=== PATIENT | female | born 1980 | race American Indian/Alaskan Native ===

== ENCOUNTER 2019-09-08 14:44 | Inpatient (IN) | payer OTHER ==
--- NOTE | 2019-09-08 15:06 | Event Note ---
ED Screening Note Date of service: 09/08/19 Time: 15:02 ED Screening Note: 39 y/o female comes in reporting that she has fluids that leaking. She is 18 weeks preg. A1, LMP 04/28/19. Followed by Dr. Baez communications consultant. This initial assessment/diagnostic orders/clinical plan/treatment(s) is/are subject to change based on patients health status, clinical progression and re- assessment by fellow clinical providers in the ED. Further treatment and workup at subsequent clinical providers discretion. Patient/guardian urged not to elope from the ED as their condition may be serious if not clinically assessed and managed. Initial orders include:
[2019-09-08 16:01] LABS: Basophils # (Auto) 0.1 K/mm3 (0.0-0.1); Basophils % (Auto) 0.8 % (0.0-1.8); Eosinophils % (Auto) 0.6 % (0.0-4.3); Hematocrit 36.4 % (30.3-42.9); Hemoglobin 12.1 gm/dl (10.1-14.3); Lymphocytes % (Auto) 26.4 % (13.4-35.0); Mean Corpuscular HGB Conc 33 % (30-34); Mean Corpuscular Volume 83 fl (79-97); Monocytes # (Auto) 0.6 K/mm3 (0.0-0.8); Monocytes % (Auto) 8.5 % (0.0-7.3); Platelet Count 270 K/mm3 (140-440); Red Blood Count 4.41 M/mm3 (3.65-5.03); Red Cell Distribution Width 13.5 % (13.2-15.2)
--- NOTE | 2019-09-08 16:02 | Ultrasound Report ---
OB ULTRASOUND >= 14 WEEKS FETUS INDICATION: Paxton pain during , leaking of fluid COMPARISON: None FINDINGS: A single gestation intrauterine is present with breech presentation. The placenta is crew lead ior, grade 0 and free of the cervical os. heart tones measure 162 bpm. The cervix measures 5.1 cm. Amniotic fluid volume is severely decreased with a fluid index of 0. anatomical survey was not performed. Biparietal diameter is 4.1 cm which equals 18 weeks 3 days. Head circumference is 16.3 cm which equals 19 weeks 0 days. Abdominal circumference is 13.7 cm which equals 19 weeks 1 day. Femur length is 3.2 cm which equals 19 weeks 6 days. Overall estimated sonographic age is 19 weeks 1 day. EDC: 02/01/2020. HC/AC ratio: 1.2 Cephalic index: 76.4 Estimated weight 291 g. IMPRESSION: Viable single intrauterine as described. Oligohydramnios. Signer Name: Clayton Segundo Jr, MD Signed: 09/08/2019 3:57 PM Workstation Name: [id number]
[2019-09-08 16:08] LABS: INR 0.96 (0.87-1.13)
[2019-09-08 16:09] LABS: Partial Thromboplastin Time 29.2 Sec. (24.2-36.6)
[2019-09-08 16:21] LABS: BUN/Creatinine Ratio 9; Blood Urea Nitrogen 7 mg/dL (7-17); Calcium 9.9 mg/dL (8.4-10.2); Hemolysis Index 11
--- NOTE | 2019-09-08 16:28 | Emergency Department Report ---
ED HPI - General Chief complaint: Urogenital-Female Stated complaint: WATER BROKE Time Seen by Provider: 09/08/19 15:02 Source: patient Mode of arrival: Ambulatory Limitations: No Limitations - History of Present Illness Initial comments: This is a 39-year-old -[place]aced[place] female who presents to the emergency room with vaginal leakage. Patient states she is 18 weeks [address] Roman [employer]DLE SCHOOL GUIDANCE COUNSELOR. Her last menstrual period was May 02, 2019, G4, miscarriage. Patient reports he yellowish clear fluid started leaking around 1410 p.m. today. She denies abdominal pain, back pain, vaginal bleeding, or vaginal discharge. MD Complaint: other (vaginal leakage) -: This afternoon Time: 14:00 Consistency: constant Improves with: none Worsens with: none Associated symptoms: denies other symptoms Vaginal bleeding: none :: Yes Number of weeks : 18 OB History - Current : no complications OB History - Previous Pregnancies: miscarriage Last menstrual period: 05/02/19 Pre-johanna care: followed by OB - Related Data : 4 Para: 2 Ab: 1 (Miscarriage) Allergies Allergy/AdvReac Type Severity Reaction Status Date / Time No Known Allergies Allergy Unverified 09/08/19 14:45 ED Review of Systems ROS: Stated complaint: WATER BROKE Other details as noted in HPI Constitutional: denies: chills, fever Respiratory: denies: cough, shortness of breath, wheezing Cardiovascular: denies: chest pain, palpitations Gastrointestinal: denies: abdominal pain, nausea, diarrhea Genitourinary: other (Leaking yellowish fluid). denies: urgency, dysuria, discharge Musculoskeletal: denies: back pain, joint swelling, arthralgia Skin: denies: rash, lesions Neurological: denies: headache, weakness, paresthesias Psychiatric: denies: anxiety, depression ED Past Medical Hx - Past Medical History Previous Medical History?: No - Surgical History Past Surgical History?: No - Social History Smoking Status: Never Smoker Substance Use Type: None ED Physical Exam - General Limitations: No Limitations General appearance: alert, in no apparent distress - Respiratory Respiratory exam: Present: normal lung sounds bilaterally. Absent: respiratory distress - Cardiovascular Cardiovascular Exam: Present: regular rate, normal rhythm. Absent: systolic murmur, diastolic murmur, rubs, gallop - GI/Abdominal GI/Abdominal exam: Present: soft, normal bowel sounds. Absent: distended, tenderness, guarding, rebound, rigid - Back Exam Back exam: Absent: CVA tenderness (R), CVA tenderness (L) - Neurological Exam Neurological exam: Present: alert, oriented X3, normal gait - Psychiatric Psychiatric exam: Present: normal affect, normal mood - Skin Skin exam: Present: warm, dry, intact, normal color. Absent: rash ED Course Vital Signs 09/08/19 14:46 Temperature 98.7 F Pulse Rate 108 H Respiratory 18 Rate Blood Pressure 118/63 O2 Sat by Pulse 100 Oximetry - Consultations Consultation #1: 09/08/19 16:38 Dr. Roman [employer] S[employer] GUIDANCE COUNSELOR was consulted and spoke with Lorin regarding OB US findings of Viable single intrauterine as described. Oligohydramnios. She instructed to discharge patient from ER and have nursing staff take patient to mother and baby for admission. 09/08/19 16:38 ED Medical Decision Making - Lab Data Result diagrams: 09/08/19 15:42 09/08/19 15:42 Lab Results 09/08/19 09/08/19 09/08/19 Range/Units 15:42 15:42 15:42 WBC 7.5 (4.5-11.0) K/mm3 RBC 4.41 (3.65-5.03) M/mm3 Hgb 12.1 (10.1-14.3) gm/dl Hct 36.4 (30.3-42.9) % MCV 83 (79-97) fl MCH 28 (28-32) pg MCHC 33 (30-34) % RDW 13.5 (13.2-15.2) % Plt Count 270 (140-440) K/mm3 Lymph % (Auto) 26.4 (13.4-35.0) % [place] % (Auto) 8.5 H (0.0-7.3) % Eos % (Auto) 0.6 (0.0-4.3) % Baso % (Auto) 0.8 (0.0-1.8) % Lymph # 2.0 (1.2-5.4) K/mm3 [place] # 0.6 (0.0-0.8) K/mm3 Eos # 0.0 (0.0-0.4) K/mm3 Baso # 0.1 (0.0-0.1) K/mm3 Seg Neutrophils % 63.7 (40.0-70.0) % Seg Neutrophils # 4.8 (1.8-7.7) K/mm3 PT 12.9 (12.2-14.9) Sec. INR 0.96 (0.87-1.13) APTT 29.2 (24.2-36.6) Sec. Sodium 141 (137-145) mmol/L Potassium 4.0 (3.6-5.0) mmol/L Chloride 104.4 (98-107) mmol/L Carbon Dioxide 22 (22-30) mmol/L Anion Gap 19 mmol/L BUN 7 (7-17) mg/dL Creatinine 0.8 (0.7-1.2) mg/dL Estimated GFR > 60 ml/min BUN/Creatinine Ratio 9 % Glucose 104 H (65-100) mg/dL Calcium 9.9 (8.4-10.2) mg/dL Blood Type 09/08/19 Range/Units 15:42 WBC (4.5-11.0) K/mm3 RBC (3.65-5.03) M/mm3 Hgb (10.1-14.3) gm/dl Hct (30.3-42.9) % MCV (79-97) fl MCH (28-32) pg MCHC (30-34) % RDW (13.2-15.2) % Plt Count (140-440) K/mm3 Lymph % (Auto) (13.4-35.0) % [place] % (Auto) (0.0-7.3) % Eos % (Auto) (0.0-4.3) % Baso % (Auto) (0.0-1.8) % Lymph # (1.2-5.4) K/mm3 [place] # (0.0-0.8) K/mm3 Eos # (0.0-0.4) K/mm3 Baso # (0.0-0.1) K/mm3 Seg Neutrophils % (40.0-70.0) % Seg Neutrophils # (1.8-7.7) K/mm3 PT (12.2-14.9) Sec. INR (0.87-1.13) APTT (24.2-36.6) Sec. Sodium (137-145) mmol/L Potassium (3.6-5.0) mmol/L Chloride (98-107) mmol/L Carbon Dioxide (22-30) mmol/L Anion Gap mmol/L BUN (7-17) mg/dL Creatinine (0.7-1.2) mg/dL Estimated GFR ml/min BUN/Creatinine Ratio % Glucose (65-100) mg/dL Calcium (8.4-10.2) mg/dL Blood Type B POSITIVE - Radiology Data Radiology results: report reviewed OB ULTRASOUND >= 14 WEEKS FETUS INDICATION: Panda pain during , leaking of fluid COMPARISON: None FINDINGS: A single gestation intrauterine is present with breech presentation. The placenta is posterior, grade 0 and free of the cervical os. heart tones measure 162 bpm. The cervix measures 5.1 cm. Amniotic fluid volume is severely decreased with a fluid index of 0. anatomical survey was not performed. Biparietal diameter is 4.1 cm which equals 18 weeks 3 days. Head circumference is 16.3 cm which equals 19 weeks 0 days. Abdominal circumference is 13.7 cm which equals 19 weeks 1 day. Femur length is 3.2 cm which equals 19 weeks 6 days. Overall estimated sonographic age is 19 weeks 1 day. EDC: 02/01/2020. HC/AC ratio: 1.2 Cephalic index: 76.4 Estimated weight 291 g. IMPRESSION: Viable single intrauterine as described. Oligohydramnios. - Medical Decision Making This is a 39-year-old female that presents with vaginal leakage at 18 weeks gestation. Vitals are stable and patient in no acute distress. Denies abdominal pain or bleeding. Work-up: Urinalysis, BMP, CBC, coags, hCG quant, and OB ultrasound. Viable single intrauterine as described. Oligohydramnios. Consulted Dr. Roman MIDD[employer] S[employer] GUIDANCE COUNSELOR office and spoke with Lorin. Instructed to discharge patient and send to [facility] and Baby for admission. Patient discharged and nursing staff rolled to Mother and Baby via wheelchair for admission. Critical care attestation.: If time is entered above; I have spent that time in minutes in the direct care of this critically ill patient, excluding procedure time. ED Disposition Clinical Impression: Oligohydramnios Qualifiers: Fetus number: single or unspecified fetus Trimester: second trimester Qualified Code(s): O41.02X0 - Oligohydramnios, second trimester, not applicable or unspecified Disposition: DC/TX-70 ANOTHER TYPE HLTHCARE Is pt being admited?: No Condition: Stable Additional Instructions: Upon discharge go directly to mother and baby for admission and continued care. Referrals: JONH ROMAN MD [Staff Physician] - 3-5 Days Forms: Work/School Release Form(ED) Time of Disposition: 16:36
[2019-09-08] MEDS ORDERED: ALUM-MAG HYDROXIDE-SIMETHICONE 200-200-20MG/5ML ORAL LIQD 30 ML PO PRN (20:12)
[2019-09-08] MEDS ORDERED: ONDANSETRON 4 MG/2 ML INJ IV PRN (20:12)
[2019-09-08] MEDS ORDERED: diphenhydrAMINE 25 MG CAP PO PRN (20:12)
[2019-09-08] MEDS ORDERED: DOCUSATE SODIUM 100 MG CAP PO PRN (20:12)
[2019-09-08] MEDS ORDERED: MAGNESIUM HYDROXIDE (MOM) ORAL LIQD UDC PO PRN (20:12)
[2019-09-08] MEDS ORDERED: SIMETHICONE 80 MG CHEW TAB PO PRN (20:12)
--- NOTE | 2019-09-08 21:38 | History and Physical Report ---
History of Present Illness Date of examination: 09/08/19 Chief complaint: SROM History of present illness: This is a 39-year-old female presented to triage complaining of spontaneous rupture of membranes around 1410 p.m. today. Patient states she was getting out of a car and noticed a gush of fluid from the vaginal area. As per her bulb sorter's recommendation she presented to triage for evaluation. Because she was less than 20 weeks she was sent to the ED where she had an ultrasound t hat revealed an SYLVAIN of 0. Patient states she has had no further leaking since arriving to the hospital. She denies abdominal pain, back pain, vaginal bleeding, or vaginal discharge. Past History : 4 Term Births: 2 Premature Births: 0 Living Children: 2 Para: 2 Mult. Births: 0 Prev : 0 Aborta: 1 Elect. Ab: 0 Spont. Ab: 1 Ectopics: 0 # 1 Delivery date: 08/05/1999 Weeks Gestation: 38 Delivery type: Hours of labor: 23 Anesthesia type: epidural Delivery [place]: [facility] [place] Sex: Male weight: 5-2 Name: Noam # 2 Delivery date: 04/18/2002 Weeks Gestation: 39 Delivery type: Hours of labor: 8 Anesthesia type: none [place] [facility] [place] Sex: Male weight: 6-7 Name: Martinez # 3 Delivery date: 12/31/2018 Weeks Gestation: 10 Delivery type: SAB Delivery location: [facility] Comments: No D&C Past Medical History Abnormal PAP: negative ANNE Exposure: negative Infertility: negative Uterine Anomaly: negative Uterine Surgery (not C/S): negative Other Gynecologic Problems: negative Social Hx: Marital Status: Children: 2 Occupation: [employer] Smoking History: Patient has never smoked. Infection History Hx of STD: HSV HIV Risk Eval: low risk Hepatitis B Risk Eval: low risk Personal hx. of genital herpes: yes Partner hx. of genital herpes: no Rash, Viral, or Febrile illness since last LMP? no Varicella/Chicken Pox Status: Previous Disease TB Risk: no Genetic History ADVANCED MATERNAL AGE Congenital Heart Defect: Mom: no Dad: no Mary Disease: Mom: no Dad: no Thalassemia Mom: no Dad: no Neural Tube Defect Mom: no Dad: no Down's Syndrome Mom: no Dad: no Omkar-Sachs Mom: no Dad: no Sickle Cell Disease/Trait Mom: no Dad: no Hemophilia Mom: no Dad: no Muscular Dystrophy Mom: no Dad: no Cystic Fibrosis Mom: no Dad: no Rowan Chorea Mom: no Dad: no Mental Retardation Mom: no Dad: no Fragile X Mom: no Dad: no Other Genetic/Chromosomal Disorder Mom: no Dad: no Child w/other defect Mom: no Dad: no Enviromental Exposures Enviromental Exposures Reviewed Xray Exposure: no Medication, drug, or alcohol use since LMP: no Chemical/Other Exposure: no Exposure to Cat Liter: no Hx of Parvovirus (Fifth Disease): no Occupational Exposure to Children: none Active Medications (reviewed today): PLUS/IRON 27-1 MG ORAL TABLET ( VIT-FE FUMARATE-FA) 1 po q day as directed VALTREX 500 MG ORAL TABLET (VALACYCLOVIR HCL) one by mouth twice a day for 3 days Current Allergies (reviewed today): No known allergies Past History - Obstetrical History Expected Date of Delivery: 01/30/20 Actual Gestation: 19 Week(s) 3 Day(s) : 4 Medications and Allergies Allergies Allergy/AdvReac Type Severity Reaction Status Date / Time No Known Allergies Allergy Unverified 09/08/19 14:45 Home Medications Medication Instructions Recorded Confirmed Last Taken Type Vit-Fe Fumar-FA [ 1 tab PO QDAY 09/08/19 09/08/19 09/07/19 09:00 History Vitamin] Active Meds: Active Medications Acetaminophen (Tylenol) 650 mg PO Q6H PRN PRN Reason: Pain MILD(1-3)/Fever >100.5/VERDUGO Al Hydrox/Mg Hydrox/Simethicone (Alum-Mag Hydrox-Simeth [phone]/5ml) 30 ml PO Q6H PRN PRN Reason: Indigestion Diphenhydramine HCl (Benadryl) 25 mg PO Q6H PRN PRN Reason: Itching Docusate Sodium (Colace) 100 mg PO Q12H PRN PRN Reason: Constipation Magnesium Hydroxide (Milk Of Magnesia) 30 ml PO QHS PRN PRN Reason: Laxative Effect Multivitamins/Iron/Calcium ( Vitamin) 1 each PO QDAY KATHY Ondansetron HCl (Zofran) 4 mg IV Q6H PRN PRN Reason: Nausea And Vomiting Simethicone (Mylicon) 80 mg PO Q6H PRN PRN Reason: Gas pain Zolpidem Tartrate (Ambien) 5 mg PO QHS PRN PRN Reason: Sleep Review of Systems All systems: negative Genitourinary: leakage of fluid - Vital Signs Vital signs: Vital Signs Temp Pulse Resp BP Pulse Ox 98.7 F 108 H 18 118/63 100 09/08/19 14:46 09/08/19 14:46 09/08/19 14:46 09/08/19 14:46 09/08/19 14:46 Temp Pulse Resp BP Pulse Ox 98.7 F 110 H 20 120/65 98 09/08/19 18:11 09/08/19 20:18 09/08/19 18:11 09/08/19 20:18 09/08/19 20:16 - Physical Exam Breasts: Positive: deferred Cardiovascular: Regular rate Lungs: Positive: Normal air movement Abdomen: Positive: soft. Negative: tenderness Genitourinary (Female): Positive: normal external genitalia, normal perenium Vulva: both: normal Vagina: Positive: normal moisture (No pooling, no obvious evidence of ROM) Uterus: Positive: other (difficult to palpate). Negative: tender Anus/Rectum: Positive: normal perianal skin Extremities: Positive: normal - Obstetrical FHR: auscultation normal (150 per SHEEP FARM MANAGER) Cervical Dilatation: 0.5 Cervical Effacement Percentage: 0 station: -2, soft, posterior Results Result Diagrams: 09/08/19 15:42 09/08/19 15:42 Abnormal lab results 09/08/19 09/08/19 09/08/19 Range/Units 15:42 15:42 15:42 [place] % (Auto) 8.5 H (0.0-7.3) % Glucose 104 H (65-100) mg/dL HCG, Quant [id number] H (0-4) mIU/mL All other labs normal. Ultrasound: report reviewed, image reviewed Assessment and Plan - Patient Problems (1) 19 weeks gestation of Current Visit: Yes Status: Acute (2) Advanced maternal age (AMA) in Current Visit: Yes Status: Chronic (3) BMI 40.0-44.9, adult Current Visit: Yes Status: Chronic (4) Anhydramnios Current Visit: Yes Status: Acute Qualifiers: Fetus number: single or unspecified fetus Plan to address problem: Although no evidence of rupture by exam patient's history is convincing for rupture of membranes. She has no obvious signs or symptoms of infection at this point. She was informed at this gestational age this baby is considered nonviable. Discussed expected management versus termination. Patient was informed that with expectant management she would be at risk for infection that may be fatal or at least life-threatening, bleeding. She was also informed the baby's lungs will not develop without the appropriate amount of fluid and the fetus is at increased risk for limb contractures. Patient desires expectant management at this time. She is already an established patient with [facility]. States she has an appointment on . If this patient remains stable overnight with no evidence of bleeding or infection or any other complications she may be a candidate for outpatient management. She was informed if she is allowed home she is to remain on her property except for her doctor's visits, she will not be allowed to go to work. Patient voiced understanding and agrees with plan of care.
[2019-09-08] MEDS: ZOLPIDEM 5 MG TAB PO PRN (21:41)
[2019-09-09] MEDS: PRENATAL VIT27-FE FUMARATE-FOLIC ACID VIT TAB PO SCH (09:13)
[2019-09-09] MEDS: ACETAMINOPHEN 325 MG TAB PO PRN ×2 (09:13→15:05)
--- NOTE | 2019-09-09 12:43 | Progress Note ---
Assessment and Plan 39 y.o. @ 19 wks with SROM. Pt has a temperature of 100.9 this AM. Explained to pt that she can not go home at this time and that Dr. Tracey will come and speak with pt about plan of care. She currently denies additional LOF, ctxs, vag bleeding. Will continue to monitor pt. Subjective - Subjective Date of service: 09/09/19 (Pt states doing well.) Principal diagnosis: 19+ wks, SROM clear fluid Objective - Vital Signs Vital Signs: Vital Signs - 12hr 09/09/19 09/09/19 09/09/19 00:57 00:58 01:00 Temperature 99.4 F Pulse Rate 94 H 86 Respiratory 12 Rate Blood Pressure 106/61 O2 Sat by Pulse 98 Oximetry 09/09/19 09/09/19 09/09/19 06:06 06:07 06:08 Temperature Pulse Rate 94 H 93 H 93 H Respiratory Rate Blood Pressure 89/50 92/51 O2 Sat by Pulse 94 Oximetry 09/09/19 09/09/19 09/09/19 06:09 08:29 09:00 Temperature 99.0 F 100.9 F H Pulse Rate 97 H Respiratory 14 18 Rate Blood Pressure 97/52 O2 Sat by Pulse 98 Oximetry 09/09/19 10:30 Temperature 99.2 F Pulse Rate Respiratory Rate Blood Pressure O2 Sat by Pulse Oximetry - Exam Breasts: deferred Cardiovascular: Regular rate Lungs: Clear to auscultation Abdomen: Present: normal appearance, soft Vulva: both: normal Uterus: Present: normal Uterine Contraction Monitor Mode: External Uterine Contraction Pattern: Absent (Pt denies ctxs) Uterine Contraction Intensity: Mild Extremities: normal Deep Tendon Reflex Grade: Normal +2 - Labs Labs: Abnormal Labs 09/08/19 09/08/19 09/08/19 15:42 15:42 15:42 [place] % (Auto) 8.5 H Glucose 104 H HCG, Quant [id number] H Laboratory Results - last 24 hr 09/08/19 09/08/19 09/08/19 15:42 15:42 15:42 WBC 7.5 RBC 4.41 Hgb 12.1 Hct 36.4 MCV 83 MCH 28 MCHC 33 RDW 13.5 Plt Count 270 Lymph % (Auto) 26.4 [place] % (Auto) 8.5 H Eos % (Auto) 0.6 Baso % (Auto) 0.8 Lymph # 2.0 [place] # 0.6 Eos # 0.0 Baso # 0.1 Seg Neutrophils % 63.7 Seg Neutrophils # 4.8 PT 12.9 INR 0.96 APTT 29.2 Sodium 141 Potassium 4.0 Chloride 104.4 Carbon Dioxide 22 Anion Gap 19 BUN 7 Creatinine 0.8 Estimated GFR > 60 BUN/Creatinine Ratio 9 Glucose 104 H Calcium 9.9 HCG, Quant Blood Type Antibody Screen 09/08/19 09/08/19 15:42 15:42 WBC RBC Hgb Hct MCV MCH MCHC RDW Plt Count Lymph % (Auto) [place] % (Auto) Eos % (Auto) Baso % (Auto) Lymph # [place] # Eos # Baso # Seg Neutrophils % Seg Neutrophils # PT INR APTT Sodium Potassium Chloride Carbon Dioxide Anion Gap BUN Creatinine Estimated GFR BUN/Creatinine Ratio Glucose Calcium HCG, Quant [id number] H Blood Type B POSITIVE Antibody Screen Negative
[2019-09-09 13:39] LABS: Hematocrit 33.6 % (30.3-42.9); Hemoglobin 10.9 gm/dl (10.1-14.3); Mean Corpuscular HGB Conc 33 % (30-34); Mean Corpuscular Volume 82 fl (79-97); Platelet Count 241 K/mm3 (140-440); Red Blood Count 4.08 M/mm3 (3.65-5.03); Red Cell Distribution Width 13.5 % (13.2-15.2)
--- NOTE | 2019-09-09 14:19 | Event Note ---
Date: 09/09/19 I d/w that due to having a low grade temp we would con't to observe her for now. Pt advised that the temp in addition to the new elevation of WBC could be indicated of chorioamnionits or infection of the membranes surrounding the fetus. I d/w that treatment is usually delivery. I d/w that we have consulted [facility] who was to see pt in the office on tomorrow. Pt does not want delivery induction at this time. I d/w risk of infection including sepsis, need for hystrectomy due to infection uterus, ect. Pt expressed understanding and questions were addressed and answered. Pt and mother expressed understanding. Will con't to observe at this time and await input from [facility]. Again I d/w pt IOL for impending chorio, she declines delivery at this time. Pt currently does no have abdominal tenderness and also states that she was under to covers just prior to temp being checked.
[2019-09-09 15:28] LABS: Bilirubin,Urine NEG (Negative); Blood,Urine NEG (Negative); Color,Urine Yellow (Yellow); Mucus,Urine FEW /HPF; Protein,Urine <15 mg/dL mg/dL (Negative); Urobilinogen,Urine < 2.0 mg/dL (<2.0)
[2019-09-09 16:05] LABS: Bilirubin,Urine Negative (Negative); Blood,Urine Negative (Negative); Color,Urine YELLOW (Yellow)
[2019-09-09 16:06] LABS: Protein,Urine <15 mg/dL mg/dL (Negative); Urobilinogen,Urine < 2.0 mg/dL (<2.0)
[2019-09-09 16:07] LABS: Mucus,Urine Few /HPF
--- NOTE | 2019-09-09 20:33 | Event Note ---
Date: 09/09/19 (late entry due to [employer] examples remote acess being down.) Provider not able to do note or orders until this time as the remote access to [employer] is down. I was called at 1910pm about temp pt had of 101.5 at 1500pm today. I was not aware. RN stated she did not call the provider or the strip presser and simply gave the pt tylenol po and temp came down. I have spoken with pt and expressed my concern for chorio and sepsis with elevation of WBC and now elevation in temp and that the treatment recommended is delivery. I d/w risk of sepsis, hysterectomy from infection of uterus, organ failure, and from the proceeding complications and that the only way to remove the infection is for delivery as I believe the source is the uterus and . Pt still refuse IOl at the time and delivery. [facility] has been updated on pt status and will see pt in the am. I d/w that while other sources of infection will be ruled out via various test(ie blood cx, chest xr, urine cx, and flu screening) the most likely source if from the uterus due to ROM. Septic also was d/w pt. She expressed understanding and stated she has no new symptoms ie cough, abdominal pain and again declines intervention with IOL. I also d/w starting amp,gent, clinda antibx in hopes of preventing the infection of uterus from progressing. She expressed understanding and agrees with plan of care. I d/w pt current PAIGE Rueda at 1934pm and updated her on the plan of care for the pt and she was also present at the bedside when the above d/w was had with pt via phone.
[2019-09-09] MEDS ORDERED: AMPICILLIN/NS 2 GM/100 ML 2 GM/100 ML BAG IV SCH (21:00)
[2019-09-09] MEDS ORDERED: LACTATED RINGERS 1,000 ML ONE (22:27)
--- NOTE | 2019-09-09 22:37 | XRay Report ---
CHEST 2 VIEWS INDICATION / CLINICAL INFORMATION: fever. COMPARISON: None available. FINDINGS: SUPPORT DEVICES: None. HEART / MEDIASTINUM: No significant abnormality. LUNGS / PLEURA: No significant pulmonary or pleural abnormality. No pneumothorax. ADDITIONAL FINDINGS: No significant additional findings. IMPRESSION: 1. No acute abnormality of the chest. Signer Name: Elian Garcia MD Signed: 09/09/2019 10:33 PM Workstation Name: [id number]
[2019-09-09] MEDS ORDERED: ACETAMINOPHEN 325 MG TAB PO ONE (22:45)
[2019-09-09] MEDS ORDERED: ACETAMINOPHEN 500 MG TAB PO ONE (23:00)
[2019-09-10] MEDS ORDERED: GENTAMICIN/NS 80 MG/100 ML 100 ML IV SCH
[2019-09-10] MEDS: ZOLPIDEM 5 MG TAB PO PRN (00:48)
[2019-09-10] MEDS: AMPICILLIN/NS 2 GM/100 ML 2 GM/100 ML BAG IV SCH ×3 (05:05→18:39)
--- NOTE | 2019-09-10 05:35 | Progress Note ---
<PAUL BRADLEY - Last Filed: 09/10/19 06:57> Assessment and Plan Pt had voiced desire to RN that she wanted to move forward with delivery of the baby Pt voiced these same desires to me. SVE 1,thick, OOP. Pt is warm on the inside and fluid is now foul smelling. Pt asks to wait until her son goes to school and she wants to have breakfast. Will start @ 0900 Text with pt's desires. Spoke with Dr Perez made aware of pt's desires and POC to start IOL Subjective - Subjective Date of service: 09/10/19 (pt requests to move forward with IOL) Principal diagnosis: 19w5d wks, SROM clear fluid; chorio; IOL Objective - Vital Signs Vital Signs: Vital Signs - 12hr 09/09/19 09/09/19 09/09/19 18:36 20:58 21:07 Temperature 99.2 F 99.1 F Pulse Rate 101 H 101 H Respiratory 16 18 Rate Blood Pressure 125/63 Blood Pressure 125/63 [Right] O2 Sat by Pulse 98 Oximetry 09/09/19 09/09/19 09/10/19 22:41 22:43 00:41 Temperature 102.2 F H 99.5 F Pulse Rate 102 H Respiratory Rate Blood Pressure 132/64 Blood Pressure [Right] O2 Sat by Pulse Oximetry 09/10/19 09/10/19 09/10/19 00:43 01:50 02:50 Temperature Pulse Rate 102 H 106 H 98 H Respiratory Rate Blood Pressure 104/51 115/56 117/56 Blood Pressure [Right] O2 Sat by Pulse Oximetry 09/10/19 09/10/19 09/10/19 03:07 03:50 04:50 Temperature 98.2 F Pulse Rate 91 H 106 H Respiratory Rate Blood Pressure 134/70 135/96 Blood Pressure [Right] O2 Sat by Pulse Oximetry 09/10/19 05:05 Temperature 98.5 F Pulse Rate Respiratory Rate Blood Pressure Blood Pressure [Right] O2 Sat by Pulse Oximetry - Exam Breasts: deferred Cardiovascular: Regular rate Lungs: Clear to auscultation, Normal air movement Abdomen: Present: normal appearance, soft. Absent: distention, tenderness Vulva: both: normal Uterus: Present: normal FHR comments: No monitoring @ this time - Labs Labs: Abnormal Labs 09/08/19 09/08/19 09/08/19 15:42 15:42 15:42 WBC MCH [place] % (Auto) 8.5 H Glucose 104 H HCG, Quant [id number] H 09/09/19 13:09 WBC 11.8 H MCH 27 L [place] % (Auto) Glucose HCG, Quant Laboratory Results - last 24 hr 09/09/19 09/09/19 09/09/19 13:09 15:00 15:04 WBC 11.8 H RBC 4.08 Hgb 10.9 Hct 33.6 MCV 82 MCH 27 L MCHC 33 RDW 13.5 Plt Count 241 Urine Color Yellow Yellow Urine Turbidity Clear Clear Urine pH 7.0 7.0 Ur Specific [place] 1.012 1.012 Urine Protein <15 mg/dl <15 mg/dl Urine Glucose (UA) Negative Neg Urine Ketones Negative Neg Urine Blood Negative Neg Urine Nitrite Negative Neg Urine Bilirubin Negative Neg Urine Urobilinogen < 2.0 < 2.0 Ur Leukocyte Esterase Negative Neg Urine WBC (Auto) 1.0 1.0 Urine RBC (Auto) 3.0 3.0 U Epithel Cells (Auto) 2.0 2.0 Urine Mucus Few Few <CRYSTAL PEREZ D - Last Filed: 09/10/19 09:49> Assessment and Plan - Patient Problems (1) Chorioamnionitis Current Visit: Yes Status: Acute Qualifiers: Fetus number: single or unspecified fetus Trimester: second trimester Qualified Code(s): O41.1220 - Chorioamnionitis, second trimester, not applicable or unspecified (2) 19 weeks gestation of Current Visit: Yes Status: Acute (3) Advanced maternal age (AMA) in Current Visit: Yes Status: Chronic (4) BMI 40.0-44.9, adult Current Visit: Yes Status: Chronic (5) Anhydramnios Current Visit: Yes Status: Acute Qualifiers: Fetus number: single or unspecified fetus Objective - Vital Signs Vital Signs: Vital Signs - 12hr 09/09/19 09/09/19 09/09/19 20:58 21:07 22:41 Temperature 99.1 F 102.2 F H Pulse Rate 101 H 101 H Respiratory 18 Rate Blood Pressure 125/63 Blood Pressure 125/63 [Right] O2 Sat by Pulse Oximetry 09/09/19 09/10/19 09/10/19 22:43 00:41 00:43 Temperature 99.5 F Pulse Rate 102 H 102 H Respiratory Rate Blood Pressure 132/64 104/51 Blood Pressure [Right] O2 Sat by Pulse Oximetry 09/10/19 09/10/19 09/10/19 01:50 02:50 03:07 Temperature 98.2 F Pulse Rate 106 H 98 H Respiratory Rate Blood Pressure 115/56 117/56 Blood Pressure [Right] O2 Sat by Pulse Oximetry 09/10/19 09/10/19 09/10/19 03:50 04:50 05:05 Temperature 98.5 F Pulse Rate 91 H 106 H Respiratory Rate Blood Pressure 134/70 135/96 Blood Pressure [Right] O2 Sat by Pulse Oximetry 09/10/19 09/10/19 09/10/19 05:50 06:41 07:42 Temperature 101.1 F H Pulse Rate 113 H Respiratory Rate Blood Pressure 111/56 118/58 Blood Pressure [Right] O2 Sat by Pulse Oximetry 09/10/19 09/10/19 07:43 07:44 Temperature 99.4 F Pulse Rate 114 H 114 H Respiratory 22 Rate Blood Pressure Blood Pressure 118/58 [Right] O2 Sat by Pulse 95 93 Oximetry - Labs Labs: Abnormal Labs 09/08/19 09/08/19 09/08/19 15:42 15:42 15:42 WBC MCH [place] % (Auto) 8.5 H Glucose 104 H HCG, Quant [id number] H 09/09/19 13:09 WBC 11.8 H MCH 27 L [place] % (Auto) Glucose HCG, Quant Laboratory Results - last 24 hr 09/09/19 09/09/19 09/09/19 13:09 15:00 15:04 WBC 11.8 H RBC 4.08 Hgb 10.9 Hct 33.6 MCV 82 MCH 27 L MCHC 33 RDW 13.5 Plt Count 241 Urine Color Yellow Yellow Urine Turbidity Clear Clear Urine pH 7.0 7.0 Ur Specific [place] 1.012 1.012 Urine Protein <15 mg/dl <15 mg/dl Urine Glucose (UA) Negative Neg Urine Ketones Negative Neg Urine Blood Negative Neg Urine Nitrite Negative Neg Urine Bilirubin Negative Neg Urine Urobilinogen < 2.0 < 2.0 Ur Leukocyte Esterase Negative Neg Urine WBC (Auto) 1.0 1.0 Urine RBC (Auto) 3.0 3.0 U Epithel Cells (Auto) 2.0 2.0 Urine Mucus Few Few
[2019-09-10] MEDS: ACETAMINOPHEN 325 MG TAB PO PRN ×2 (06:43→12:13)
[2019-09-10] MEDS ORDERED: OXYTOCIN DRIP 30 UNITS/500 ML BAG IV SCH (09:00)
[2019-09-10] MEDS ORDERED: miSOPROStol 200 MCG TAB VG SCH ×2 (09:00→10:00)
[2019-09-10] MEDS: LACTATED RINGERS 1,000 ML IV SCH (09:30)
[2019-09-10] MEDS: GENTAMICIN/NS 120MG/100ML 120 MG/100 ML BAG IV SCH ×2 (09:30→15:59)
[2019-09-10] MEDS ORDERED: MORPHINE 4 MG/1 ML INJ IV PRN (09:30)
[2019-09-10] MEDS: PRENATAL VIT27-FE FUMARATE-FOLIC ACID VIT TAB PO SCH (10:45)
--- NOTE | 2019-09-10 11:58 | Progress Note ---
Assessment and Plan - Patient Problems (1) Chorioamnionitis Current Visit: Yes Status: Acute Qualifiers: Fetus number: single or unspecified fetus Trimester: second trimester Qualified Code(s): O41.1220 - Chorioamnionitis, second trimester, not applicable or unspecified Plan to address problem: Labs reviewed with her. She denies any exposure to any illnesses at home or work. No tattoos recently placedor trauma. Dr. Tracey's discussion was reiterated. She voiced understanding and desires to proceed with IOL. Informed vaginal cytotec will be placed ~q4hrs for IOL. She's aware this is off label usage. Anticipated course explained. Questions were encouraged and answered. She voiced understanding and agrees with POC. (2) 19 weeks gestation of Current Visit: Yes Status: Acute (3) Advanced maternal age (AMA) in Current Visit: Yes Status: Chronic (4) BMI 40.0-44.9, adult Current Visit: Yes Status: Chronic (5) Anhydramnios Current Visit: Yes Status: Acute Qualifiers: Fetus number: single or unspecified fetus Subjective - Subjective Date of service: 09/10/19 Principal diagnosis: 19w5d wks, SROM clear fluid; chorio; IOL Interval history: This is a 39-year-old female presented to triage complaining of spontaneous rupture of membranes around 1410 p.m. today. Patient states she was getting out of a car and noticed a gush of fluid from the vaginal area. As per her soil sampler's recommendation she presented to triage for evaluation. Because she was less than 20 weeks she was sent to the ED where she had an ultrasound that revealed an SYLVAIN of 0. Patient states she has had no further leaking since arriving to the hospital. She denies abdominal pain, back pain, vaginal bleeding, or vaginal discharge. Past History : 4 Term Births: 2 Premature Births: 0 Living Children: 2 Para: 2 Mult. Births: 0 Prev : 0 Aborta: 1 Elect. Ab: 0 Spont. Ab: 1 Ectopics: 0 # 1 Delivery date: 08/05/1999 Weeks Gestation: 38 Delivery type: Hours of labor: 23 Anesthesia type: epidural Delivery location: [place] Infant Sex: Male weight: 5-2 Name: Noam # 2 Delivery date: 04/18/2002 Weeks Gestation: 39 Delivery type: Hours of labor: 8 Anesthesia type: none Delivery location: [facility] [place] Sex: Male weight: 6-7 Name: Martinez # 3 Delivery date: 12/31/2018 Weeks Gestation: 10 Delivery type: SAB Delivery location: [facility] Comments: No D&C Past Medical History Abnormal PAP: negative ANNE Exposure: negative Infertility: negative Uterine Anomaly: negative Uterine Surgery (not C/S): negative Other Gynecologic Problems: negative Social Hx: Marital Status: Children: 2 Occupation: [employer] Smoking History: Patient has never smoked. Infection History Hx of STD: HSV HIV Risk Eval: low risk Hepatitis B Risk Eval: low risk Personal hx. of genital herpes: yes Partner hx. of genital herpes: no Rash, Viral, or Febrile illness since last LMP? no Varicella/Chicken Pox Status: Previous Disease TB Risk: no Genetic History ADVANCED MATERNAL AGE Congenital Heart Defect: Mom: no Dad: no Mary Disease: Mom: no Dad: no Thalassemia Mom: no Dad: no Neural Tube Defect Mom: no Dad: no Down's Syndrome Mom: no Dad: no Omkar-Sachs Mom: no Dad: no Sickle Cell Disease/Trait Mom: no Dad: no Hemophilia Mom: no Dad: no Muscular Dystrophy Mom: no Dad: no Cystic Fibrosis Mom: no Dad: no Ephraim Chorea Mom: no Dad: no Mental Retardation Mom: no Dad: no Fragile X Mom: no Dad: no Other Genetic/Chromosomal Disorder Mom: no Dad: no Child w/other defect Mom: no Dad: no Enviromental Exposures Enviromental Exposures Reviewed Xray Exposure: no Medication, drug, or alcohol use since LMP: no Chemical/Other Exposure: no Exposure to Cat Liter: no Hx of Parvovirus (Fifth Disease): no Occupational Exposure to Children: none Active Medications (reviewed today): PLUS/IRON 27-1 MG ORAL TABLET ( VIT-FE FUMARATE-FA) 1 po q day as directed VALTREX 500 MG ORAL TABLET (VALACYCLOVIR HCL) one by mouth twice a day for 3 days Current Allergies (reviewed today): No known allergies Patient reports: other ("feels bad" ) Objective - Vital Signs Vital Signs: Vital Signs - 12hr 09/10/19 09/10/19 09/10/19 00:41 00:43 01:50 Temperature 99.5 F Pulse Rate 102 H 106 H Respiratory Rate Blood Pressure 104/51 115/56 Blood Pressure [Right] O2 Sat by Pulse Oximetry 09/10/19 09/10/19 09/10/19 02:50 03:07 03:50 Temperature 98.2 F Pulse Rate 98 H 91 H Respiratory Rate Blood Pressure 117/56 134/70 Blood Pressure [Right] O2 Sat by Pulse Oximetry 09/10/19 09/10/19 09/10/19 04:50 05:05 05:50 Temperature 98.5 F Pulse Rate 106 H Respiratory Rate Blood Pressure 135/96 111/56 Blood Pressure [Right] O2 Sat by Pulse Oximetry 09/10/19 09/10/19 09/10/19 06:41 07:42 07:43 Temperature 101.1 F H 99.4 F Pulse Rate 113 H 114 H Respiratory 22 Rate Blood Pressure 118/58 Blood Pressure 118/58 [Right] O2 Sat by Pulse 95 Oximetry 09/10/19 09/10/19 09/10/19 07:44 10:00 11:51 Temperature 99.4 F Pulse Rate 114 H 105 H Respiratory Rate Blood Pressure 104/61 Blood Pressure [Right] O2 Sat by Pulse 93 Oximetry - Exam Lungs: Clear to auscultation, Normal air movement Abdomen: Present: normal appearance, soft. Absent: tenderness Vulva: both: normal Uterus: Present: fundal height below umbilicus. Absent: tenderness Cervical Dilatation: 1 (+ cervical motion tenderness, with malodorous discharge) Cervical Effacement Percentage: 30 Uterine Contraction Pattern: Absent Extremities: normal - Labs Labs: Abnormal Labs 09/08/19 09/08/19 09/08/19 15:42 15:42 15:42 WBC MCH [place] % (Auto) 8.5 H Glucose 104 H HCG, Quant [id number] H 09/09/19 13:09 WBC 11.8 H MCH 27 L [place] % (Auto) Glucose HCG, Quant Laboratory Results - last 24 hr 09/09/19 09/09/19 09/09/19 13:09 15:00 15:04 WBC 11.8 H RBC 4.08 Hgb 10.9 Hct 33.6 MCV 82 MCH 27 L MCHC 33 RDW 13.5 Plt Count 241 Urine Color Yellow Yellow Urine Turbidity Clear Clear Urine pH 7.0 7.0 Ur Specific [place] 1.012 1.012 Urine Protein <15 mg/dl <15 mg/dl Urine Glucose (UA) Negative Neg Urine Ketones Negative Neg Urine Blood Negative Neg Urine Nitrite Negative Neg Urine Bilirubin Negative Neg Urine Urobilinogen < 2.0 < 2.0 Ur Leukocyte Esterase Negative Neg Urine WBC (Auto) 1.0 1.0 Urine RBC (Auto) 3.0 3.0 U Epithel Cells (Auto) 2.0 2.0 Urine Mucus Few Few Influenza A (Rapid) Influenza B (Rapid) 09/10/19 09:34 WBC RBC Hgb Hct MCV MCH MCHC RDW Plt Count Urine Color Urine Turbidity Urine pH Ur Specific [place] Urine Protein Urine Glucose (UA) Urine Ketones Urine Blood Urine Nitrite Urine Bilirubin Urine Urobilinogen Ur Leukocyte Esterase Urine WBC (Auto) Urine RBC (Auto) U Epithel Cells (Auto) Urine Mucus Influenza A (Rapid) Negative Influenza B (Rapid) Negative
[2019-09-10] MEDS: BUTORPHANOL 2 MG/1 ML INJ IV PRN ×2 (13:22→17:23)
[2019-09-10] MEDS ORDERED: OXYTOCIN 20 UNIT/1000ML DRIP 40,000 MILLIUNITS/2,000 ML BAG IV ONE (15:34)
[2019-09-10] MEDS ORDERED: LANOLIN/ZINC/DIMETHICONE (LANSINOH) 7 GM TP PRN (17:37)
[2019-09-10] MEDS ORDERED: WITCH HAZEL/ GLYCERIN PAD TP PRN (17:37)
[2019-09-10] MEDS ORDERED: PROMETHAZINE 25 MG TAB PO PRN (17:37)
--- NOTE | 2019-09-10 17:44 | Procedure Note ---
OB Delivery Note - Delivery Date of Delivery: 09/10/19 Lan/Wan Engineer: PAUL BRADLEY (placenta undelivered) Estimated blood loss: <100cc - Vaginal Delivery presentation: breech Intrapartum events: PROM->1hr before delivery, foul smelling fluid, other(please specify) (chorio; maternal fever; demise fetus) Delivery induction: misoprostol Route of delivery: Episiotomy: none Delivery laceration: none Anesthesia: none Delivery comments: Entered room for routine evaluation of pt. Noted large blood clots. Pt moaning in pain. SVE done Transverse presentation back down. Identified breech and pulled to midline fetus delivered immediately. 0/0, demise. Cord clamped and cut. Baby moved to warmer. Pt declined to see baby. Placenta fixed. Several large clots removed. Pitocin IVFs 125cc/hr Pt asking for pain medication. Given. made aware of delivery Called to room Placenta delivered with gentle pressure. No tearing Appears complete and intact. Cultures done Placenta to pathology. - Infant A at 1 minute: 0 at 5 minutes: 0 Infant Gender: Female
[2019-09-10] MEDS ORDERED: OXYTOCIN 20 UNIT/1000ML DRIP 20 UNITS/1,000 ML BAG IV SCH (18:00)
[2019-09-10] MEDS ORDERED: IBUPROFEN 600 MG TAB PO SCH (18:00)
[2019-09-10] MEDS ORDERED: ONDANSETRON 8 MG ODT TAB PO PRN (18:54)
[2019-09-10] MEDS ORDERED: IBUPROFEN 600 MG TAB PO PRN (18:56)
[2019-09-10] MEDS ORDERED: LACTATED RINGERS 1,000 ML IV SCH (19:00)
[2019-09-10] MEDS ORDERED: IBUPROFEN 800 MG TAB PO PRN (19:01)
[2019-09-11] MEDS: GENTAMICIN/NS 120MG/100ML 120 MG/100 ML BAG IV SCH (00:26)
[2019-09-11] MEDS: AMPICILLIN/NS 2 GM/100 ML 2 GM/100 ML BAG IV SCH (01:38)
[2019-09-11] MEDS: LACTATED RINGERS 1,000 ML IV SCH (06:18)
[2019-09-11 06:23] LABS: Hematocrit 28.3 % (30.3-42.9); Hemoglobin 9.3 gm/dl (10.1-14.3)
[2019-09-11] MEDS ORDERED: TETANUS,DIPH,PERTUSS(ACELL) VACCINE 0.5 ML SYRINGE IM ONE (12:00)
[2019-09-11] MEDS ORDERED: FLU VACC QUAD 2019-20 (3 YR UP)/PF 60 MCG/0.5 ML SYRINGE IM ONE (12:00)
[2019-09-11 14:06] VITALS: BP 109/57
--- NOTE | 2019-09-11 15:58 | Discharge Summary ---
Providers - Providers Date of Admission: 09/08/19 22:59 Date of discharge: 09/11/19 (Pt has strong desire to go home.) Attending physician: CRYSTAL CHUNG Primary care physician: JONH ROMAN Hospitalization Reason for admission: rupture of membranes (At 19.4 wks.), other (Fevers after SROM) Delivery: Episiotomy: none Laceration: none Other procedures: none complications: none Discharge diagnosis: delivery (@ 19.4 wks, IUFD.) Paige baby: female Hospital course: S: Pt doing well. Ambulating, passing flatus. No issues with pain or bleeding. Has a strong desire to go home. O: VSS. Has been afebrile for 24 hours. Adequate I&O's. Minimal bleeding. A: 39 y.o. s/p of non viable infant with fevers. Now afebrile for 24 hours. P: Discharge home with instructions. Condition at discharge: Good Disposition: DC-01 TO HOME OR SELFCARE Plan - Provider Discharge Summary Activity: routine, no sex for 6 weeks, no heavy lifting 4 weeks, no strenuous exercise Diet: routine Instructions: routine Additional instructions: [] Smoking cessation referral if applicable(refer to patient education folder for contact #) [] Refer to [facility] Booklet Call your doctor immediately for: * Fever > 100.5 * Heavy vaginal bleeding ( >1 pad per hour) * Severe persistent headache * Shortness of breath * Reddened, hot, painful area to leg or breast * Drainage or odor from incision. * Keep incision clean and dry at all times and follow doctor's instructions regarding bathing/showering - Follow up plan Follow up: JONH ROMAN MD [Primary Care Provider] - 10/16/19 (Please make follow up in 4 weeks. If you have any questions or concerns, please given the office a call. ) Forms: Work/School Release Form(ED)
== END 2019-09-11 16:59 | disposition home or self-care (01) | DRG 779 ==
LOC: ED 14:44 → TRG 14:44 → EDSTATUS 17:16 → LD 17:31 → TRG 20:12 → LD 22:59
PROVIDERS: ADMIT Obstetrics & Gynecology; ATTEND Obstetrics & Gynecology
PROC: 10E0XZZ Delivery of Products of Conception, External Approach (ICD-10-PCS; principal; 2019-09-10)
PROC: 3E033VJ Introduction of Other Hormone into Peripheral Vein, Percutaneous Approach (ICD-10-PCS; 2019-09-10)
PROC: 3E0234Z Introduction of Serum, Toxoid and Vaccine into Muscle, Percutaneous Approach (ICD-10-PCS; 2019-09-11)
DX: O02.1 Missed abortion (principal); O41.1220 Chorioamnionitis, second trimester, not applicable or unspecified; O41.02X0 Oligohydramnios, second trimester, not applicable or unspecified; O42.012 Preterm premature rupture of membranes, onset of labor within 24 hours of rupture, second trimester; Z23 Encounter for immunization; Z3A.19 19 weeks gestation of pregnancy; O09.522 Supervision of elderly multigravida, second trimester
CPT/HCPCS: 36415; 71046; 76816; 80048; 80170; 81001; 84702; 85014; 85018; 85025; 85027; 85610; 85730; 86850; 86900; 86901; 87040; 87086; 87116; 87400; 88305; 90686; G0378; J0290; J0595; J1580; J2270; J2590; J7120

== ENCOUNTER 2021-06-29 06:00 | Day surgery (SDC) | payer OTHER ==
--- NOTE | 2021-06-28 06:51 | History and Physical Report ---
History of Present Illness Date of examination: 07/26/21 History of present illness: Patient has been reassessed/reevaluated. H&P has been reviewed. Prior to surgery. No interval changes. This is a 41 years old female who presents with complains of menorrhagia, dysmenorrhea and pelvic pain, metrorrhagia, The patient notes that she is does not use contraception. The patient reports that she has regular menses. She complains of heavy bleeding, dysmenorrhea, clotting, history of fibroids, lightheadedness, fatigue and cramping, but denies lack history of thyroid disease, history of PCOS and history of bleeding disorder. Interval between menses is 28 days and 30 days. Menstrual flow lasts > 7 days. Patient reports that for pain she uses Tylenol and OCP's. Patient's work up has included a transvaginal ultrasound which revealed multiple leiomyomas largest is 4 cm in diameter and ovarian cyst. Patient's symptoms when present disrupts her normal daily activities Patient desires definitive treatment Vital Signs: Patient Profile: 41 Years Old Female LMP: 06/08/2021 Height: 65 inches (165.10 cm) Weight: 260 pounds BMI: 43.26 Temp: 96.0 degrees F BP sittin / 78 (left arm) Menstrual History: LMP (date): 06/08/2021 Current Method of Contraception: None Date of Last Mammogram: 06/06/2020 Date of Last Pap Smear: 02/04/2021 Past History : 4 Term Births: 2 Premature Births: 0 Living Children: 2 Para: 2 Mult. Births: 0 Prev : 0 Aborta: 2 Elect. Ab: 0 Spont. Ab: 2 Ectopics: 0 # 1 Delivery date: 08/05/1999 Weeks Gestation: 38 Delivery type: Hours of labor: 23 Anesthesia type: epidural Delivery location: [place] Sex: Male weight: 5-2 Name: Noma # 2 Delivery date: 04/18/2002 Weeks Gestation: 39 Delivery type: Hours of labor: 8 Anesthesia type: none Delivery location: [facility] [place] Infant Sex: Male weight: 6-7 Name: Martinez # 3 Delivery date: 12/31/2018 Weeks Gestation: 10 Delivery type: SAB Delivery location: [facility] Comments: No D&C # 4 Delivery date: 09/10/2019 Weeks Gestation: 19 Delivery type: Vaginal Anesthesia type: IV medication Delivery location: [facility] Infant Sex: female weight: 265 Name: Milagro Comments: rupture;demise Current Allergies (reviewed today): No known allergies Past Medical History: morbid obesity Fibroids Past Surgical History: Negative Past Surgical History Family History Summary: General Comments - FH: Family History of Diabetes mgf Family History of Renal Disease mgf No Family History of Breast Cancer No Family History of Cervical Cancer No Family History of Colon Cancer No Family History of DVT/PE on OCP Social History: Marital Status: Children: 2 Occupation: [employer] Smoking History: Patient has never smoked. Risk Factors: Smoked Tobacco Use: Never smoker Smokeless Tobacco Use: Never Passive Smoke Exposure: no Caffeine Use: <1 drinks per day Exercise: no Seatbelt Use: 100 % Mammogram History: Date of Last Mammogram: 06/06/2020 PAP Smear History: Date of Last PAP Smear: 02/04/2021 STOVE TENDER History Uterine Surgery (not C/S): negative Operations: Negative Past Surgical History Anesthesia Complications: negative Abnormal PAP: negative Uterine Anomaly: negative fibroids ANNE Exposure: negative Infertility: negative Infection History HIV Risk Eval: no TB exposure: no Personal hx. of genital herpes: yes Partner hx. of genital herpes: no Hx of STD: HSV Review of Systems General Complains of fatigue. Denies fever, chills, sweats, anorexia, weakness, malaise, weight loss and sleep disorder. Complains of menorrhagia, pelvic pain and painful periods. Denies vaginal discharge, incontinence, dysuria, hematuria, urinary frequency, amenorrhea, abnormal vaginal bleeding, genital sores, decreased libido, painful sex, urinary urgency, hot flashes, vaginal dryness, vaginal itching and vaginal odor. CV Denies chest pains, palpitations, syncope, dyspnea on exertion, orthopnea, PND and peripheral edema. Resp Denies cough, dyspnea at rest, excessive sputum, hemoptysis, wheezing and pleurisy. GI Denies nausea, vomiting, diarrhea, constipation, change in bowel habits, abdominal pain, melena, hematochezia, jaundice, gas/bloating, indigestion/heartburn, dysphagia and odynophagia. Breast Denies left breast lump, right breast lump, nipple discharge, bloody discharge from nipple, breast pain, abnormal mammogram and breast enlargement. Psych Denies depression, anxiety, irritability and mood swings. Past History Past Medical History: other (SEE HPI) Past Surgical History: Other (SEE HPI) Social history: full code, other (SEE HPI) Family history: other (SEE HPI) Medications and Allergies Allergies Allergy/AdvReac Type Severity Reaction Status Date / Time No Known Allergies Allergy Unverified 06/27/21 15:59 Home Medications Medication Instructions Recorded Confirmed Last Taken Type No Known Home Medications [No 06/27/21 06/27/21 Unknown History Reported Home Medications] Active Meds: Active Medications Cefazolin Sodium 3 gm/ Sodium (Chloride) 100 mls @ 100 mls/30 min IV PREOP NR; Protocol Stop: 06/29/21 23:00 Review of Systems Constitutional: other (SEE HPI) Exam - Physical Exam Narrative exam: HEENT: normocephalic, no lesions or deformities Skin no abnormal lesions or rashes Chest: respiratory effort normal, clear to auscultation CV: regular, normal S1-S2, no murmur, no rub, no gallop Abdomen: Obese, normal bowel sounds, soft, nontender, no HSM Musculoskeletal: grossly normal ROM in joints, no joint tenderness or muscle weakness Neuro: no gross anomalities Extremities: no clubbing, cyanosis, or edema STOVE TENDER Exams Vulva/Vagina: normal appearance, no discharge, lesions. No evidence of cystocele or rectocele. Cervix: No lesions; no cervical motion tenderness Uterus: enlarged uterus 14 -16 weeks in size Adnexae: unable to palpate due to obesity Rectovaginal: exam defered Results - Labs CBC & Chem 7: 06/28/21 06:00 06/28/21 06:00 Assessment and Plan - Patient Problems (1) Intramural leiomyoma of uterus Current Visit: No Status: Acute Plan to address problem: Diagnosis explained to patient . Questions answered. Patient's symptoms when present disrupts her normal daily activities Discussed with patient various medical, surgical and radiological therapies common for treatment including expectant management, myomectomy hysterectomy and uterine artery embolization Patient desires hysterectomy Discussed risks and benefits of laparotomy, laparoscopy, vaginal and robotic assisted approaches for hysterectomies Patient desires robotic assisted total hysterectomy. Consent reviewed and signed . The risks and alternatives for this surgery were reviewed with the patient. Discuss the risks of the surgery including infection, bleeding possibly heavy enough to require a blood transfusion, possible damage to bowel, bladder or ureter. Patient understand that this surgery with make her sterile.Patient understands if her ovaries are removed she will become menopausal. Also if unable to complete robitcally a laparotomy may be required. Patient understands and desires to proceed. (2) Menorrhagia Current Visit: No Status: Acute Qualifiers: Menorrhagia type: with regular cycle Qualified Code(s): N92.0 - Excessive and frequent menstruation with regular cycle Plan to address problem: Probably secondary to # 1 (3) Dysmenorrhea Current Visit: No Status: Acute Plan to address problem: Probably secondary to # 1 (4) Pelvic pain Current Visit: No Status: Acute Plan to address problem: Probably secondary to # 1 (5) Herpes genitalia Current Visit: No Status: Chronic Qualifiers: Herpes simplex infection site: unspecified site of urogenital system Qualified Code(s): A60.00 - Herpesviral infection of urogenital system, unspecified (6) BMI 40.0-44.9, adult Current Visit: No Status: Chronic Plan to address problem: Patient has been advised that obesity does increase risks of surgical and risks of post operative complications.
[2021-06-28 10:08] LABS: Basophils % (Auto) 0.3 % (0.0-1.8); Eosinophils % (Auto) 0.6 % (0.0-4.3); Hematocrit 39.6 % (30.3-42.9); Hemoglobin 12.4 gm/dl (10.1-14.3); Lymphocytes # (Auto) 1.8 K/mm3 (1.2-5.4); Mean Corpuscular HGB Conc 31 % (30-34); Mean Corpuscular Volume 82 fl (79-97); Monocytes # (Auto) 0.5 K/mm3 (0.0-0.8); Platelet Count 265 K/mm3 (140-440); Red Blood Count 4.82 M/mm3 (3.65-5.03); Red Cell Distribution Width 14.8 % (13.2-15.2)
[2021-06-28 10:12] LABS: BUN/Creatinine Ratio 20; Blood Urea Nitrogen 16 mg/dL (7-17); Calcium 9.3 mg/dL (8.4-10.2); Hemolysis Index 7
[2021-06-29] MEDS ORDERED: ACETAMINOPHEN 500 MG TAB PO NR ×2 (07:18→07:49)
[2021-06-29] MEDS ORDERED: MAGNESIUM OXIDE 400 MG TAB PO ONE (07:20)
[2021-06-29] MEDS ORDERED: CELECOXIB 200 MG CAP ONE (07:21)
[2021-06-29] MEDS ORDERED: LACTATED RINGERS 1,000 ML ONE (07:21)
[2021-06-29] MEDS ORDERED: GABAPENTIN 300 MG CAP ONE (07:21)
[2021-06-29] MEDS ORDERED: fentaNYL 100 MCG/2 ML INJ ONE ×2 (07:22→07:43)
[2021-06-29] MEDS ORDERED: MIDAZOLAM 2 MG/2 ML INJ ONE (07:22)
[2021-06-29] MEDS ORDERED: ROCURONIUM 50 MG/5 ML INJ IV ONE ×2 (07:43→09:32)
[2021-06-29] MEDS ORDERED: LIDOCAINE MPF (2%) 20 MG/1 ML VIAL 5 ML ONE (07:43)
[2021-06-29] MEDS ORDERED: KETAMINE/STERILE WATER 50 MG/ML SYRINGE ONE (07:44)
[2021-06-29] MEDS ORDERED: NEOMY 40 MG/POLYMYXIN B 200,000 UNITS/ML (GU) AMPULE IR ONE ×2 (07:45→11:07)
[2021-06-29] MEDS ORDERED: propofoL 200 MG/20 ML VIAL IV ONE (07:45)
[2021-06-29] MEDS ORDERED: MAGNESIUM OXIDE 400 MG TAB PO NR (07:49)
[2021-06-29] MEDS ORDERED: ONDANSETRON 4 MG/2 ML INJ IV PRN ×3 (07:50→15:59)
[2021-06-29] MEDS ORDERED: HYDROmorphone 1 MG/1 ML INJ IV PRN (07:50)
[2021-06-29] MEDS ORDERED: fentaNYL 100 MCG/2 ML INJ IV ONE (07:50)
--- NOTE | 2021-06-29 07:52 | Anesthesia Consultation ---
Anesthesia Consult and Med Hx Date of service: 06/29/21 - Airway Anesthetic Teeth Evaluation: Good, Crowns ROM Head & Neck: Adequate Mental/Hyoid Distance: Adequate Mallampati Class: Class II Intubation Access Assessment: Good - Pre-Operative Health Status ASA Pre-Surgery Classification: ASA2 Proposed Anesthetic Plan: General - Pulmonary Hx Asthma: No COPD: No Hx Pneumonia: No - Cardiovascular System Hx Hypertension: No - Central Nervous System Hx Seizures: No Hx Psychiatric Problems: No - Gastrointestinal Hx Gastroesophageal Reflux Disease: No - Endocrine Hx Renal Disease: No Hx End Stage Renal Disease: No Hx Hypothyroidism: No Hx Hyperthyroidism: No - Hematic Hx Anemia: Yes Hx Sickle Cell Disease: No - Other Systems Hx Alcohol Use: No Hx Cancer: No Hx Obesity: Yes
[2021-06-29] MEDS ORDERED: BUPIVACAINE/PF (0.25%) 2.5 MG/ML 30 ML VIAL INFILTRATI ONE (07:54)
[2021-06-29] MEDS ORDERED: LIDOCAINE (1%) 10 MG/1 ML VIAL 20 ML MDV ONE (07:54)
[2021-06-29] MEDS ORDERED: dexAMETHasone 4 MG/ML VIAL ONE (07:54)
[2021-06-29] MEDS ORDERED: GABAPENTIN 300 MG CAP PO NR (08:00)
[2021-06-29] MEDS ORDERED: LACTATED RINGERS 1,000 ML IV SCH (08:00)
[2021-06-29] MEDS ORDERED: CELECOXIB 200 MG CAP PO NR (08:00)
[2021-06-29] MEDS ORDERED: MIDAZOLAM 2 MG/2 ML INJ IV NR (08:00)
[2021-06-29] MEDS ORDERED: ceFAZolin/Water 2 GM/20 ML 2 GM/20 ML SYRINGE IV ONE (08:21)
[2021-06-29] MEDS ORDERED: ceFAZolin/STERILE WATER 2 GM/20 ML SYRINGE IV NR (09:00)
[2021-06-29] MEDS ORDERED: GLYCOPYRROLATE 0.4 MG/2 ML INJ ONE ×2 (10:14→10:24)
[2021-06-29] MEDS ORDERED: NEOSTIGMINE 10MG/10 ML INJ MDV ONE (10:14)
[2021-06-29] MEDS ORDERED: HYDROcodone/ACETAMINOPHEN 5-325 MG TAB PO PRN (11:05)
[2021-06-29] MEDS ORDERED: ACETAMINOPHEN 325 MG TAB PO PRN (11:05)
[2021-06-29] MEDS ORDERED: SODIUM CHLORIDE 0.9% IRR 1,500 ML BOTTLE IR ONE (11:07)
[2021-06-29] MEDS ORDERED: SODIUM CHLORIDE 0.9% IRRIG SOLN 2000 ML IR ONE (11:08)
--- NOTE | 2021-06-29 11:18 | Operative Report ---
Operative Report Operative Report: Date of procedure: June 29, 2021 Pre-operative diagnosis: Symptomatic leiomyomata with dysmenorrhea and m enorrhalgia Post-operative diagnosis: Same Procedure name(s):Robotic Assisted Total Hysterectomy with bilateral salpingectomy Surgeon: Denzel Baez MD [employer] Supervisor: Marce Bentíez, certified vehicle fire investigator Anesthesia: General EBL: 50 cc Complications: None Findings: Uterus approximately 15 weeks with multiple leiomyomata a large posterior pedunculated myoma about 5-6 cm in diameter I posterior fundal myoma approximately 6 cm in diameter. Patient had normal appearing fallopian tubes bilaterally 7 with some paratubal cysts and normal-appearing ovaries. Patient did have some adhesions between the left adnexa and the left sidewall and colon. Specimen(s): Uterus with cervix bilateral fallopian tubes and to removed leiomyomata Procedure: Patient was brought to the operating room where general anesthesia was induced without any difficulty. Patient was placed in the dorsal lithotomy position. Prepped and draped in the usual sterile manner for robotic procedure. Gordon catheter was placed without difficulty. Speculum was placed in the vagina. A large V-Care Uterine manipulator was placed without difficulty. Attention was now switched to the patient's abdomen. A vertical supra-umbilicus incision was made with a scalpel. A 10-12 trocar was placed in this incision under direct visualization. Intra-abdominal placement was verified with no evidence of in ternal organ damage. The patient was insufflated approximately 3-1/2 L of CO2 gas. She was placed in Trendelenburg position. The patient pelvic findings were noted as above. It was determined that the patient was a candidate for robotic procedure. On both sides the umbilical incision at about 8 cm, incisions were made for robotic trocars. Each robotic trocar was placed under direct visualization with no evidence of internal organ damage. One 5 mm trocar was placed 2 fingerbreadths above the right iliac crest. A 5 mm camera was placed in the right lower quadrant trocar, the 10-12 trocar was removed and a Armen Garcia laparoscopic port closure device was placed through this incision under direct visualization with no evidence of internal organ damage. The camera was then replaced into this port. At this time the patient was placed in extreme Trendelenburg. The [employer] Evita robot was then docked on the patient's left side. The trocars connected to the robot appropriately robotic instruments were placed under direct visualization no evidence of internal organ damage.. At this time I took my place under the robotic operating juarez. Starting on the patient's right side the ureter was identified and found to be out of the operative field. Using the robotic vessel sealer the mesosalpinx under the fallopian tube were cauterized and cut starting from the distal end. Utero-ovarian complex was then cauterized and cut. This was followed by cauterizing and cutting the right fallopian tube and right round ligament. The broad ligament was then opened. The bladder flap was formed anteriorly. The posterior broad ligament was then excised. The uterine vessels were skeletonized. The ureter was clearly seen out of the operative field. The bladder was pushed away from the anterior uterus. The right uterine vessels were then cauterized and cut. Attention was then switched to the patient's left side. The same procedure was repeated on the left side with perform the salpingectomy followed by isolating the uterine vessels cauterized and cutting and completing the bladder flap from the left side. At this time the uterus was appearing very cyanotic. After inspecting the bladder flap to insured no evidence of bladder injury, the colpotomy was then started. Incision started at 6:00 until the V-Care could be seen. This incision was extended from 6:00 to 9:00. Then from 6:00 to 3:00. Then from 9:00 to 12:00. This incision was extended from 3:00 to 12:00. At this time colpotomy was complete with no evidence of adjacent organ damage. Attempted to deliver the uterus through the colpotomy but due to his size I had to remove the large leiomyomata in order to deliver the uterus through the colpotomy. The large fundal myoma was removed by incising the serosa and removing the adhesions around the capsule of the myoma. The pedunculated 1 was removed by incising through the stalk of the myoma. The clinical education assistant was then able to remove the uterus from through the colpotomy site. The vaginal cuff was irrigated and cauterized and found to be hemostatic. The cuff was closed with roboticly using 0 V- Lock suture. This closure was hemostatic after irrigation and Bovie. All pedicles were inspected and found to be hemostatic. The ureters were identified bilaterally and found to be functioning normal. The patient had clear urine in the Gordon catheter with no evidence of mixture with blood. Surgicel powder was placed on the cuff and pedicles for postoperative hemostasis . All instruments were then removed. The large trocar sites were closed in layers 2-0 Vicryl and 4-0 Monocryl. The smaller incisions were closed subcuticularly with 4-0 Monocryl. Dermabond was placed over the skin incisions. The patient tolerated procedure well. She was awakened in the operating room and accompanied to the recovery room in good condition.
[2021-06-29] MEDS: HYDROmorphone 1 MG/1 ML INJ IV PRN ×2 (11:50→12:00)
--- NOTE | 2021-06-29 13:45 | Post Anesthesia Evaluation ---
- Post Anesthesia Evaluation Patient Participated: Yes Airway Patent: Yes Stable Respiratory Function: Yes Nausea/Vomiting: No Temp > 96.8F: Yes Pain Manageable: Yes Adequeate Hydration: Yes Anesthesia Complications: No Block Receding Appropriately: Not Applicable Patient on Ventilator: No
[2021-06-29] MEDS ORDERED: ONDANSETRON 4 MG/2 ML INJ ONE ×2 (14:13→15:57)
--- NOTE | 2021-06-29 16:23 | Short Stay Summary ---
Short Stay Documentation Date of service: 06/29/21 Narrative H&P: See dictated history and physical - History Principal diagnosis: Symptomatic leiomyomata Past Medical History: other (SEE HPI) Past Surgical History: Other (SEE HPI) Social history: full code, other (SEE HPI) - Allergies and Medications Current Medications: Allergies No Known Allergies Allergy (Unverified 06/27/21 15:59) Home Medications Medication Instructions Recorded Confirmed Last Taken Type Ibuprofen [Motrin] 800 mg PO TID PRN #30 tablet 06/29/21 Unknown Rx metroNIDAZOLE [Flagyl] 500 mg PO Q12HR 7 Days #14 tab 06/29/21 Unknown Rx oxyCODONE /ACETAMINOPHEN [Percocet 1 - 2 tab PO Q6HR PRN #20 tablet 06/29/21 Unknown Rx 5/325 mg] Active Medications Acetaminophen (Acetaminophen 325 Mg Tab) 650 mg PO Q4H PRN PRN Reason: Pain MILD(1-3)/Fever >100.5/VERDUGO Hydrocodone Bitart/Acetaminophen (Hydrocodone/Acetaminophen 5-325 Mg Tab) 2 each PO Q6H PRN PRN Reason: Pain, Moderate (4-6) Last Admin: 06/29/21 15:36 Dose: 2 each Documented by: Cefazolin Sodium (Cefazolin/Sterile Water 2 Gm/20 Ml Syringe) 2 gm IV PREOP NR Stop: 06/29/21 20:00 Hydromorphone HCl (Hydromorphone 1 Mg/1 Ml Inj) 0.25 mg IV Q10MIN PRN PRN Reason: Pain, Moderate (4-6) Stop: 06/29/21 23:00 Hydromorphone HCl (Hydromorphone 1 Mg/1 Ml Inj) 0.5 mg IV Q10MIN PRN PRN Reason: Pain , Severe (7-10) Stop: 06/29/21 23:00 Last Admin: 06/29/21 12:00 Dose: 0.5 mg Documented by: Lactated Ringer's (Lactated Ringers) 1,000 mls @ 125 mls/hr IV DIRECT KATHY Last Admin: 06/29/21 07:30 Dose: 125 mls/hr Documented by: Midazolam HCl (Midazolam 2 Mg/2 Ml Inj) 2 mg IV PREOP NR Stop: 06/29/21 23:59 Last Admin: 06/29/21 08:03 Dose: 2 mg Documented by: - Physical exam General appearance: no acute distress Integumentary: no rash HEENT: Atraumatic Lungs: Normal air movement Breasts: deferred Heart: Regular rate Gastrointestinal: hypoactive bowel sounds, tenderness (Appropriate postop), distended (Appropriate postop robotic procedure) Female Genitourinary: normal Rectal Exam: deferred Extremities: no ischemia, pulses intact, pulses symmetrical, Full ROM - Brief post op/procedure progress note Date of procedure: 06/29/21 (See dictated operative note for details) - Hospital course Hospital course: Patient was admitted underwent the above him procedure without any complications . Patient was admitted and underwent above procedure without complications. Her post operative extended recovery observation course was benign she was afebrile throughout. Patient had no orthostatic symptoms. Patient was tolerating regular diet and voiding without difficulty at time of discharge. Patient incision was healing well without evidence of infection. Patient will be discharged with follow-up in office in 1-2 weeks for postop check - Disposition Condition at discharge: Good Disposition: 01 HOME / SELF CARE / HOMELESS - Discharge Diagnoses (1) Intramural leiomyoma of uterus Status: Acute (2) Menorrhagia Status: Acute Qualifiers: Menorrhagia type: with regular cycle Qualified Code(s): N92.0 - Excessive and frequent menstruation with regular cycle (3) Dysmenorrhea Status: Acute (4) Pelvic pain Status: Acute (5) Herpes genitalia Status: Chronic Qualifiers: Herpes simplex infection site: unspecified site of urogenital system Qualified Code(s): A60.00 - Herpesviral infection of urogenital system, unspecified (6) BMI 40.0-44.9, adult Status: Chronic Short Stay Discharge Plan Activity: advance as tolerated Diet: regular Wound: open to air Additional Instructions: Patient instructed no heavy lifting for 4 weeks. No intercourse for 8 weeks. Call office for fever, chills, nausea, vomiting or pain not controlled by pain medications. Ambulation is encouraged. Patient's call for heavy vaginal bleeding. Patient instructed to keep her scheduled post operative office appointment. Follow up with: PRIMARY CAREMD [Primary Care Provider] - 7 Days Forms: Outpatient Surgery DC Inst. Prescriptions: metroNIDAZOLE [Flagyl] 500 mg PO Q12HR 7 Days #14 tab Ibuprofen [Motrin] 800 mg PO TID PRN #30 tablet PRN Reason: Pain oxyCODONE /ACETAMINOPHEN [Percocet 5/325 mg] 1 - 2 tab PO Q6HR PRN #20 tablet PRN Reason: Pain
[2021-06-29 16:34] VITALS: BP 119/68
== END 2021-06-29 17:15 | disposition home or self-care (01) ==
LOC: OR 06:00
PROVIDERS: ATTEND Obstetrics & Gynecology
DX: D25.1 Intramural leiomyoma of uterus (principal); N92.0 Excessive and frequent menstruation with regular cycle; A60.00 Herpesviral infection of urogenital system, unspecified; D64.9 Anemia, unspecified; E66.9 Obesity, unspecified; N72 Inflammatory disease of cervix uteri; Z79.899 Other long term (current) drug therapy; Z98.890 Other specified postprocedural states; Z20.822 Contact with and (suspected) exposure to COVID-19; Z82.49 Family history of ischemic heart disease and other diseases of the circulatory system
CPT/HCPCS: 36415; 58573; 64488; 80048; 84703; 85025; 86850; 86900; 86901; 88307; J0690; J1100; J1170; J1815; J2250; J2405; J2704; J2710; J3010; J3490; J7120; S2900; U0003; 64450